=== PATIENT | female | born 1995 | race Caucasian/White ===

== ENCOUNTER 2023-05-28 09:40 | Emergency (ER) | payer OTHER ==
[2023-05-28 09:59] VITALS: BP 128/94; PULSE 91; RESP 18; TEMP 98.1; BMI 28.1
[2023-05-28] MEDS ORDERED: IBUPROFEN 600 MG TABLET (FP) PO ONE (10:02)
[2023-05-28] MEDS: IBUPROFEN 600 MG TABLET (FP) PO ONE (10:05)
== END 2023-05-28 10:10 | disposition home or self-care (01) ==
LOC: FER 09:40
DX: S13.4XXA Sprain of ligaments of cervical spine, initial encounter (principal); R51.9 Headache, unspecified; V43.52XA Car driver injured in collision with other type car in traffic accident, initial encounter
CPT/HCPCS: 99283-25